=== PATIENT | male | born 1995 | race Caucasian/White ===

== ENCOUNTER → 2022-06-22 17:43 | Outpatient (CLI) | payer OTHER, SELFPAY ==
--- NOTE | 2022-06-22 | DI.MRI.S_ITS ---
PROCEDURE: MR LUMBAR SPINE WO/W CON INDICATIONS: pain TECHNIQUE: Noncontrast sagittal T1 spin echo and T2 fast spin echo, sagittal STIR, axial T1 and T2 fast spin echo through the lumbar spine. In cases with scoliosis, additional coronal T2 fast spin echo may be performed. After the administration of contrast, sagittal and axial T1 spin echo with fat saturation through the lumbar spine. COMPARISON: [facility] [place], CR, XR LUMBAR SPINE 2 OR 3 VIEWS, 06/04/2022, 13:50. FINDINGS: Image quality: Excellent. Alignment and curvature: There is normal bony alignment. Marrow: Marrow is of normal overall signal. There is minimal reactive endplate change at L5-S1. No acute vertebral body compression fractures. No suspicious marrow enhancement. Spinal cord: Conus medullaris terminates at the L1 level. Visualized spinal cord demonstrates normal signal, without suspicious enhancement. Paraspinous soft tissues: No paravertebral masses or abnormal enhancement. Discs: Minimal to mild disc desiccation at L1-2, L3-4, L4-5, L5-S1. T12-L1: No disc bulge, spinal stenosis or foraminal narrowing. L1-L2: No disc bulge, spinal stenosis or foraminal narrowing. L2-L3: No disc bulge, spinal stenosis or foraminal narrowing. L3-L4: Minimal disc bulge without spinal stenosis or foraminal narrowing. Epidural lipomatosis is present. L4-L5: Minimal disc bulge without spinal stenosis. Minimal left foraminal narrowing. L5-S1: Mild disc bulge with right posterior paracentral small superimposed protrusion. No foraminal narrowing. IMPRESSION: Minimal disc bulges and foraminal narrowing as above. Disc bulge at L5-S1 demonstrates a small right posterior paracentral protrusion. There is no direct compromise of exiting nerve roots. Dictated by: Yashira Live M.D. on 06/23/2022 at 13:39 Approved by: Yashira Live M.D. on 06/23/2022 at 13:44
== END ==
DX: M51.37 Other intervertebral disc degeneration, lumbosacral region (principal); R20.2 Paresthesia of skin
CPT/HCPCS: 72158; A9579